=== PATIENT | female | born 1990 | race African-American/Black ===

== ENCOUNTER 2022-07-10 23:27 | Emergency (ER) | payer MEDICAID, OTHER ==
[~2022-07-10] VITALS: Ht 172.7 cm; Wt 80.0 kg
[2022-07-10] MEDS ORDERED: METHYLPREDNISOLONE SOD SUCC 125 MG/2 ML VIAL IV STA (23:41)
[2022-07-10] MEDS ORDERED: SODIUM CHLORIDE 0.9% 1,000 ML IV ONE (23:45)
[2022-07-11 00:52] LABS: BASOPHILS % 0.4 % (0.0-2.0); EOSINOPHILS % 1.4 % (0.0-5.0); HEMATOCRIT. 37.6 % (36.0-48.0); HEMOGLOBIN. 12.8 g/dL (12.0-16.0); LYMPHOCYTES % 23.7 % (20.0-50.0); MEAN CORPUSCULAR HEMOGLOBIN 30.4 pg (28.0-32.0); MEAN CORPUSCULAR VOLUME 89.1 fL (81.0-99.0); MONOCYTES % 9.1 % (2.0-8.0); NEUTROPHILS % 65.4 % (40.0-76.0); PLATELET 282 x1000/uL (130-400); RED BLOOD CELL COUNT 4.22 mill/uL (4.2-5.4)
[2022-07-11 00:58] LABS: CHLORIDE 108 mEq/L (98-107)
[2022-07-11] MEDS ORDERED: P50 MT (02:01)
[2022-07-11] MEDS ORDERED: EPIN0.3P3 IM (02:01)
[2022-07-11] MEDS ORDERED: B50 MT (02:01)
[2022-07-11 03:00] VITALS: BP 115/75
== END 2022-07-11 03:30 | disposition home or self-care (01) ==
LOC: ER 23:27
DX: T78.1XXA Other adverse food reactions, not elsewhere classified, initial encounter (principal); F12.90 Cannabis use, unspecified, uncomplicated; Z91.012 Allergy to eggs; Z91.010 Allergy to peanuts; X58.XXXA Exposure to other specified factors, initial encounter
CPT/HCPCS: 36415; 80053; 81025; 85025; 96361; 96374; 99283; J2930; J7030

== ENCOUNTER 2024-02-02 23:20 | Emergency (ER) | payer MEDICAID ==
[~2024-02-02] VITALS: Ht 165.1 cm; Wt 78.0 kg
[~2024-02-02 23:20] MED LIST: B50 MT; EPIN0.3P3 IM; P50 MT
[2024-02-02 23:21] VITALS: TEMP 98.9; O2SAT 100
[2024-02-02 23:30] VITALS: BP 170/126; PULSE 111; RESP 20; O2SAT 99
[2024-02-02] MEDS ORDERED: FAMOTIDINE 20MG/2ML VIAL IV ONE (23:30)
[2024-02-02] MEDS ORDERED: EPINEPHRINE 1:1000 1 MG/ML AMP IM ONE (23:30)
[2024-02-02] MEDS ORDERED: DEXAMETHASONE 10 MG/ML VIAL IV ONE (23:30)
[2024-02-02] MEDS ORDERED: DIPHENHYDRAMINE 50MG/ML VIAL IV ONE (23:30)
[2024-02-02] MEDS: SODIUM CHLORIDE 0.9% 1,000 ML IV SCH (23:35)
[2024-02-02 23:44] LABS: BASOPHILS % 0.4 % (0.0-2.0); EOSINOPHILS % 2.4 % (0.0-5.0); HEMATOCRIT. 36.5 % (36.0-48.0); LYMPHOCYTES % 26.1 % (20.0-50.0); MEAN CORPUSCULAR HEMOGLOBIN 29.4 pg (28.0-32.0); MEAN CORPUSCULAR HGB CONC 32.9 g/dL (31.0-37.0); MEAN CORPUSCULAR VOLUME 89.3 fL (81.0-99.0); MEAN PLATELET VOLUME 7.6 fl (7.4-10.4); MONOCYTES % 6.9 % (2.0-8.0); NEUTROPHILS % 64.2 % (40.0-76.0); PLATELET 338 x1000/uL (130-400); RED BLOOD CELL COUNT 4.08 mill/uL (4.2-5.4); RED CELL DISTRIBUTION WIDTH 15.5 % (11.6-14.6); WHITE BLOOD COUNT 11.5 x1000/uL (4.5-11.0)
[2024-02-02 23:54] LABS: CHLORIDE 109 mEq/L (98-107); POTASSIUM 3.7 mEq/L (3.5-5.1); SODIUM 144 mEq/L (136-145)
[2024-02-02 23:55] LABS: CALCIUM 9.3 mg/dL (8.7-10.4); CARBON DIOXIDE 22 mEq/L (21-32)
[2024-02-03] LABS: CREATININE 0.9 mg/dL (0.6-1.0); GLUCOSE 107 mg/dL (70-105); UREA NITROGEN BLOOD 9 mg/dL (9-23)
== END 2024-02-03 00:18 | disposition home or self-care (01) ==
LOC: ER 23:20
DX: R06.02 Shortness of breath (principal); F12.10 Cannabis abuse, uncomplicated; Z79.52 Long term (current) use of systemic steroids; Z88.0 Allergy status to penicillin
CPT/HCPCS: 80048; 85025; 36415; 71045; 93005; 96360; 99291; J1100; J1200; J3490 ×2; Z7610